=== PATIENT | female | born 1960 | race Caucasian/White ===

== ENCOUNTER 2025-01-17 14:59 | Observation (INO) | payer OTHER, SELFPAY ==
[2025-01-17 12:31] VITALS: BP 134/84
--- NOTE | 2025-01-17 13:49 | ED.GENMED ---
History of Present Illness
<Rosalba Cedillo, HIGH SCHOOL SOCIAL STUDIES TEACHER - Last Filed: 01/17/25 15:25>
General
Chief Complaint: Overdose Unintentional
Source: patient
Exam Limitations: none
Time Seen by Provider: 01/17/25 13:04
Nursing documentation reviewed up to this point in time: agreed with
History of Present Illness
History of Present Illness:
64-year-old female with history of anxiety/depression on Wellbutrin for 50 mg daily states she took her morning meds at 10 this morning and then as she was rushing out the door at 11:30 she saw her pill box sitting there and she accidentally took
her Saturday(tomorrow) medications. She is asymptomatic, no palpitations.
Past History
<Rosalba Cedillo, HIGH SCHOOL SOCIAL STUDIES TEACHER - Last Filed: 01/17/25 15:25>
Past History
ED Past Medical History: Cancer (Breast), Hypothyroidism and Psychiatric (anxiety/depression)
ED Past Surgical History: Orthopedic
Social History
Tobacco: Non-smoker
Personal:
Living: with family
Review of Systems
<Rosalba Cedillo, HIGH SCHOOL SOCIAL STUDIES TEACHER - Last Filed: 01/17/25 15:25>
Review of Systems
Allergies reviewed?: Yes
All Other Systems: ROS reviewed and negative except as documented in HPI and ROS
Constitutional: Denies fatigue
Respiratory: Denies trouble breathing
Cardiac: Denies chest pain or palpitations
ABD/GI: Denies abdominal pain or nausea
Skin: Reports no symptoms
Neurological: Reports no symptoms
Phy Exam
<Rosalba Cedillo, HIGH SCHOOL SOCIAL STUDIES TEACHER - Last Filed: 01/17/25 15:25>
Physical Exam
Physical Exam:
GENERAL: No acute distress. A&Ox3.
CONSTITUTIONAL: Afebrile.
EYES: clear, conjunctivae normal
ENMT: moist mucus membranes, Pharynx nl
RESPIRATORY: Regular respirations, nonlabored, lungs clear.
CARDIOVASCULAR: Regular rate and rhythm, no murmurs, no rubs.
GI: Soft, nontender, normal BS
MUSCULOSKELETAL: Moves with ease. Well perfused.
SKIN: Warm, dry, pink
PSYCH: Normal mood and affect. Well kept, interactive and appropriate
NEUROLOGIC: Awake, alert and oriented. No focal neurological deficits
Course
<Rosalba Cedillo, HIGH SCHOOL SOCIAL STUDIES TEACHER - Last Filed: 01/17/25 15:25>
Orders/Labs/Results
Orders:
Orders
01/17/25 13:07
Electrocardiogram (*1) Urgent
Reason for Study: QTc Monitoring
EKG- Treatment ONCE
01/17/25 14:48
Admit/Transfer Patient As Directed
Co-Sign Provider:
Level of Care: Observation services
Assign to:: Telemetry
Physician / Group: Hospitalist
Diagnosis: Accidental overdose
Reason for Telemetry: Other
Other Reason for Telemetry: Medication overdose
Date to Stop Telemetry: 01/19/25
Time to Stop Telemetry: 11:00
Reason for Hospitalization: Accidental overdose
01/17/25 14:50
Complete Blood Count/With Diff Urgent
Comprehensive Metabolic Panel Urgent
01/19/25 11:00
DC Protocol for Telemetry ONCE
Abnormal Lab Results
01/17/25
14:50
Absolute Monos (auto) 0.7 H 10^3/uL
(0.1-0.6)
BUN 20 H mg/dl
(7-17)
01/17/25 14:50
01/17/25 14:50
Vital Signs
Initial and Last Documented VS:
Initial Vital Signs
Temp Pulse Resp BP Pulse Ox
98.8 F 77 17 134/84 99
01/17/25 12:31 01/17/25 12:31 01/17/25 12:31 01/17/25 12:31 01/17/25 12:31
Last Documented Vital Signs
Temp Pulse Resp BP Pulse Ox
98.8 F 72 20 121/74 97
01/17/25 12:31 01/17/25 14:53 01/17/25 14:30 01/17/25 14:00 01/17/25 14:30
Butadiene Converter Utility Operator consulted with Physician
Butadiene Converter Utility Operator consulted with physician?: Yes
Name of Physician Consulted: Ky
<Chet Mcpherson, DO - Last Filed: 01/17/25 14:38>
Orders/Labs/Results
Orders:
Orders
01/17/25 13:07
Electrocardiogram (*1) Urgent
Reason for Study: QTc Monitoring
EKG- Treatment ONCE
01/17/25 14:48
Admit/Transfer Patient As Directed
Co-Sign Provider:
Level of Care: Observation services
Assign to:: Telemetry
Physician / Group: Hospitalist
Diagnosis: Accidental overdose
Reason for Telemetry: Other
Other Reason for Telemetry: Medication overdose
Date to Stop Telemetry: 01/19/25
Time to Stop Telemetry: 11:00
Reason for Hospitalization: Accidental overdose
01/17/25 14:50
Complete Blood Count/With Diff Urgent
Comprehensive Metabolic Panel Urgent
01/19/25 11:00
DC Protocol for Telemetry ONCE
Abnormal Lab Results
01/17/25
14:50
Absolute Monos (auto) 0.7 H 10^3/uL
(0.1-0.6)
BUN 20 H mg/dl
(7-17)
01/17/25 14:50
01/17/25 14:50
Vital Signs
Initial and Last Documented VS:
Initial Vital Signs
Temp Pulse Resp BP Pulse Ox
98.8 F 77 17 134/84 99
01/17/25 12:31 01/17/25 12:31 01/17/25 12:31 01/17/25 12:31 01/17/25 12:31
Last Documented Vital Signs
Temp Pulse Resp BP Pulse Ox
98.8 F 72 20 121/74 97
01/17/25 12:31 01/17/25 14:53 01/17/25 14:30 01/17/25 14:00 01/17/25 14:30
<Rosalba V. Day, HIGH SCHOOL SOCIAL STUDIES TEACHER - Last Filed: 01/17/25 15:25>
MDM/Problems Addressed
Differential Diagnosis Includes:
long Q-T, seizure risk
MDM/Problems Addressed:
64-year-old female with history of anxiety/depression on Wellbutrin for 50 mg daily states she took her morning meds at 10 this morning and then as she was rushing out the door at 11:30 she saw her pill box sitting there and she accidentally took
her Saturday(tomorrow) medications. She is asymptomatic, no palpitations.
EKG: NSR normal QT
2:40 p.m.
Consulted pharmacy, the half-life of Wellbutrin XL is 21 hours
Contacted [facility] toxicology, spoke with Dr. Mendiola. Recommends admit to telemetry for observation as pt is on highest dose, seizure known to occur at the 18th to 20th hour. Benzos for any seizure activity, repeat EKG if any changes
Hospitalist notified of admission.
Discussed with Dr. Mcpherson
CBC, CMP normal
<Rosalba V. Day, HIGH SCHOOL SOCIAL STUDIES TEACHER - Last Filed: 01/17/25 15:25>
*Pulse Oximetry
SaO2: 98
Oxygen Mode of Delivery: Room air
Patient hypoxic: no
*Critical Care Note
Total Time (30-74mins, 75-104mins- exclusive of procedures): Not Applicable
ED Attending Note
<Rosalba V. Day, HIGH SCHOOL SOCIAL STUDIES TEACHER - Last Filed: 01/17/25 15:25>
-
Portions of this chart may have been created with voice recognition software.� Occasional wrong word or��sound alike� substitutions may have occurred due to the inherent limitations of voice recognition software.
<Chet Mcpherson DO - Last Filed: 01/17/25 14:38>
ED Attending Note
Patient seen and examined by attending physician: Yes
I performed the substantive portion of visit, reviewed & personally made and approve the management plan that is documented in note by myself or EMILY.: Yes
Discharge Plan
Departure
Patient Disposition: Admit
Date of Disposition: 01/17/25
Time of Disposition: 13:49
Admit to: Telemetry
Presentation/result/management discussed w/ accepting MD/DO: Hospitalist
Patient with high blood pressure during this ER visit?: No
Condition: Good
Discharge Problem:
took one extra dose of medication, Accidental overdose
Interventions
Interventions:
*Risk Screen - Suicide Last Done: 01/17/25 12:25
*General Assessment Last Done: 01/17/25 12:33
*Neglect/Abuse Screening Last Done: 01/17/25 12:26
*ED COVID-19 Vaccine History Last Done: 01/17/25 12:33
*ED Influenza Vaccine History Last Done: 01/17/25 12:33
[facility] Risk Assessment Tool Last Done: 01/17/25 13:00
ED- Cardiac Assessment Last Done: 01/17/25 13:14
ED- Neurological Assessment Last Done: 01/17/25 13:14
ED-Psychological Assessment Last Done: 01/17/25 13:14
ED- Pulmonary Assessment Last Done: 01/17/25 13:14
[2025-01-17 14:00] VITALS: BP 121/74
[2025-01-17 14:58] LABS: Hematocrit 40.8 % (37.0-47.0); Hemoglobin 13.6 g/dL (12.0-16.0); Mean Corp Hgb Conc. 33.3 g/dL (33.0-37.0); Mean Corpuscular Volume 90.3 fL (81.0-99.0); Nucleated Red Blood Cells % 0 %; Platelet Count 188 10^3/uL (130-400); Red Cell Dist. Width 12.6 % (11.5-14.5)
[2025-01-17 15:00] VITALS: BP 144/87
--- NOTE | 2025-01-17 15:03 | HPS.HSE ---
Addendum entered and electronically signed by Vidal Lucas MD 01/17/25 15:40:
I personally reviewed and evaluated this patient with the resident. I agree with above unless if otherwise stated below.
I personally reviewed labs and imaging statistical consultant notes case management note
Unintentional overdose on Wellbutrin Forner 50 mg XL and levothyroxine 100 mcg along with letrozole.
- Accidentally took doses hour and a half apart from Medi senior planner.
Admit watch on telemetry as this could cause a pseudo thyroid storm. Therefore check TFT, if low normal then certainaly can cause some hyperthyroid symtpoms, if high normal then should be okay.
Seizure precautions
Avoid agents that lowers seizure threshold
If has seizure provide Ativan 2 mg
Original Note:
Family Physician
-
Family Physician: Aleah Ramirez
Chief Complaint
-
Accidental overdose
History of Present Illness
64-year-old female with history of anxiety, depression, breast cancer s/p mastectomy and radiation presents with accidental medication overdose. Patient notes that this morning she took her morning dose of Wellbutrin which was 450 mg,
levothyroxine, letrozole. At 11:30 PM she was rushing out the door to go out when she saw her pillbox sitting there and she accidentally took her Saturday medication ( wellbutrin, levothyroxine and letrozole). She took total of 900 mg for
wellbutrin, 200 mg of levothyroxine. She denies chest pain, shortness of breath, palpitations, dry mouth. She notes of being anxious now. EKG is normal.
Medical History
Past Medical History
Past Medical History: Reports Psychiatric (Anxiety/depression) and Other (Breast cancer, hypothyroidism)
Past Surgical History: Reports Other (Mastectomy)
Social History
Tobacco: Non-smoker
Alcohol: Occasional
Drug: None
Personal:
Living: With Family
Employment: Retired
Family History
Family History: Not pertinent
Allergies / Home Medications
Allergies reflects when Allergies were last updated in [facility].
Home Medications with original date entered in [facility]
Allergy/Medication List:
Allergies
Allergy/AdvReac Type Severity Reaction Status Date / Time
prochlorperazine (From Allergy Anaphylaxis Verified 01/17/25 12:32
Compazine)
Sulfa (Sulfonamide Allergy Rash Verified 01/17/25 12:32
Antibiotics)
Home Medications
bupropion HCl 150 mg 24 hr tablet, extended release (Wellbutrin XL) 150 mg PO DAILY Mental Health/Anxiety 01/17/25
bupropion HCl 300 mg 24 hr tablet, extended release (Wellbutrin XL) 300 mg PO DAILY Mental Health/Anxiety 01/17/25
cholecalciferol (vitamin D3) 25 mcg (1,000 unit) tablet (Vitamin D3) 25 mcg PO DAILY 01/17/25
letrozole 2.5 mg tablet 2.5 mg PO DAILY 01/17/25
levothyroxine 100 mcg tablet (Synthroid) 100 mcg PO DAILY Thyroid 01/17/25
lutein 20 mg tablet 20 mg PO DAILY Supplement 01/17/25
meloxicam 7.5 mg tablet 7.5 mg PO DAILYPRN PRN mild pain 01/17/25
sertraline 25 mg tablet 25 mg PO HS Mental Health/Anxiety 01/17/25
Review of Systems
-
History Source: Patient
A 12 point ROS was completed and negative except as noted: Yes
Physical Exam
Vital Signs
Vital Signs
Temp Pulse Resp BP Pulse Ox
98.8 F 72 20 121/74 97
01/17/25 12:31 01/17/25 14:53 01/17/25 14:30 01/17/25 14:00 01/17/25 14:30
Physical Exam
General: Comfortable and Conversant
HEENT: NormoCephalic, Anicteric and Moist mucous membranes
Respiratory: Clear and Wheezes
Cardiac: S1/S2 and Regular Rhythm
GI: Soft, Non Tender, Non Distended and Normal Bowel Sounds
Musculoskeletal: No Edema
Skin: Warm and Dry
Neuro: AO x 3
Hematologic/Lymphatic: No Lymphadenopathy
Psych: Calm
Laboratory Results
-
01/17/25 14:50
Data Reviewed
-
Lab Data: Labs Reviewed by me and Discussed with Physician
Impression/Plan
-
IMPRESSION:
Accidental medication overdose
History of anxiety/depression
History of hypothyroidism
History of breast cancer
History of Vitamin D deficiency
PLAN:
Accidental medication(wellbutrin) overdose
Total dose of Wellbutrin taken this morning 900 mg
Home dose dose 450mg.
Patient is hemodynamically stable
Labs are ok, normal EKG.
Toxicology specialist, Dr Mendiola, at [facility] was contacted by the ER physicians and recommended observing the patient overnight because of seizure risk at 18th-20th hour.
Admit to telemetry for observation
Repeat EKG if any changes
IV Ativan for any seizure activity
Hold all antipsychotic medication
History of anxiety/depression
Hold Wellbutrin.
Continue sertraline at night.
History of hypothyroidism
Took an extra dose of levothyroxine
Hold levothyroxine.
Monitor heart rate
History of breast cancer
s/p mastectomy and radiation
Hold letrozole
Hold meloxicam
History of vitamin D deficiency
Continue vitamin D3
Full code
Regular diet
Lovenox
[2025-01-17 15:22] LABS: ALT (SGPT) 29 U/L (0-35); AST (SGOT) 27 U/L (14-36); Albumin 4.1 g/dl (3.5-5.0); Alkaline Phosphatase 78 U/L (38-126); Blood Urea Nitrogen 20 mg/dl (7-17); Calcium 9.1 mg/dl (8.4-10.2); Carbon Dioxide 27 mmol/L (22-30); Chloride 105 mmol/L (98-107); Glucose 81 mg/dl (70-99); Potassium 4.2 mmol/L (3.5-5.1); Sodium 137 mmol/L (135-145); Total Protein 6.5 g/dl (6.3-8.2); eGFR > 60.00
[2025-01-17 15:54] VITALS: BP 140/82; BMI 26.2
--- NOTE | 2025-01-17 16:49 | PTCARENOTE ---
Pt was received from ED at 1555. Pt ambulated to the room, steady gait. Pt is AAOx3, VSS. No seizure activity noted. Pt feels well. SR on telemetry. Seizure precautions in place.
[2025-01-17 19:02] VITALS: BP 119/70
[2025-01-17 23:46] VITALS: BP 120/69
[2025-01-18 03:22] VITALS: BP 101/58
[2025-01-18 06:00] VITALS: BMI 25.5
[2025-01-18 08:13] VITALS: BP 101/59
[2025-01-18 08:34] LABS: Hematocrit 38.2 % (37.0-47.0); Hemoglobin 12.6 g/dL (12.0-16.0); Mean Corp Hgb Conc. 33.0 g/dL (33.0-37.0); Mean Corpuscular Volume 90.3 fL (81.0-99.0); Nucleated Red Blood Cells % 0 %; Platelet Count 161 10^3/uL (130-400); Red Cell Dist. Width 12.7 % (11.5-14.5)
--- NOTE | 2025-01-18 09:09 | W.PN.HOSP.TC ---
Today's Communication/Plan
-
Check thyroid labs
Discharge if stable
Assessment / Plan
Assessment / Plan
Gen-AAOx3, NAD
HEENT-NC, AT, anicteric, clear oral mm
Neck-supple
CV-reg, no M, +S1/S2
Lungs-clear B/L
Abd-soft, NT, ND
Ext-no edema
Musculoskeletal-no cyanosis, clubbing
Skin-warm and dry
Neuro-grossly non-focal
Psych-calm, cooperative
Accidental medication overdose -took 1 extra dose of her usual meds. So far no complications. Monitor on telemetry.
History of anxiety/depression -resume Wellbutrin on discharge.
Hypothyroidism -thyroid labs pending. Resume levothyroxine at discharge.
History of breast cancer -continue letrozole.
Vitamin D deficiency
Full code
Dispo -anticipate discharge home after lunch today if she remains stable. Outpatient follow-up.
Anticipated Discharge: Today
Subjective/Interval History
-
Date of Service: January 18, 2025
Patient seen and examined. No complaints.
Objective Data
-
Labs:
Laboratory Results
01/18/25
07:38
WBC 5.2
Hgb 12.6
Hct 38.2
Plt Count 161
Sodium Pending
Potassium Pending
Chloride Pending
Carbon Dioxide Pending
BUN Pending
Creatinine Pending
Glucose Pending
Calcium Pending
Total Bilirubin Pending
AST Pending
ALT Pending
Alkaline Phosphatase Pending
Vital Signs:
Vital Signs
Temp Pulse Resp BP Pulse Ox
98.1 F 75 18 101/59 98
01/18/25 08:13 01/18/25 08:13 01/18/25 08:13 01/18/25 08:13 01/18/25 08:13
Review of Systems
-
History Source: Patient
All other systems: Reviewed and negative
--- NOTE | 2025-01-18 09:13 | W.DS.TRANS ---
DC Summary - Change Attendant
-
Discharge Instructions:
Discharge Diagnosis/Procedures Accidental medication overdose
Diet Regular
Activity As tolerated
Driving Restrictions As prior to admission
Bathing Restrictions None
Instructions:
Stand-Alone Forms:
Changes to Home Medications: No
Discharge Medications:
DC Medications w/original date entered in [facility]
bupropion HCl 150 mg 24 hr tablet, extended release (Wellbutrin XL) 150 mg PO DAILY Mental Health/Anxiety 01/17/25
bupropion HCl 300 mg 24 hr tablet, extended release (Wellbutrin XL) 300 mg PO DAILY Mental Health/Anxiety 01/17/25
cholecalciferol (vitamin D3) 25 mcg (1,000 unit) tablet (Vitamin D3) 25 mcg PO DAILY 01/17/25
letrozole 2.5 mg tablet 2.5 mg PO DAILY 01/17/25
levothyroxine 100 mcg tablet (Synthroid) 100 mcg PO DAILY Thyroid 01/17/25
lutein 20 mg tablet 20 mg PO DAILY Supplement 01/17/25
meloxicam 7.5 mg tablet 7.5 mg PO DAILYPRN PRN mild pain 01/17/25
sertraline 25 mg tablet 25 mg PO HS Mental Health/Anxiety 01/17/25
Home Medication Changes
Pending Results: No
[2025-01-18 09:18] LABS: ALT (SGPT) 24 U/L (0-35); AST (SGOT) 24 U/L (14-36); Albumin 3.7 g/dl (3.5-5.0); Alkaline Phosphatase 67 U/L (38-126); Blood Urea Nitrogen 16 mg/dl (7-17); Calcium 9.0 mg/dl (8.4-10.2); Carbon Dioxide 26 mmol/L (22-30); Chloride 108 mmol/L (98-107); Estimated Creatinine Clearance 69 ml/min; Glucose 83 mg/dl (70-99); Potassium 4.1 mmol/L (3.5-5.1); Sodium 138 mmol/L (135-145); Total Protein 6.2 g/dl (6.3-8.2); eGFR > 60.00
--- NOTE | 2025-01-18 10:11 | CM ---
Ia completed OBS form given and placed on chart. IND in ADLs and IADLs. Lives in a 2 story house with her spouse with 3 steps at the entrance to the home. Full BR is no the second floor; 13 steps inside the home. No hx of HH, SNF, DME or home O2.
Confirmed PCP. RX drug coverage and insurance. No insecurities identified.
PCP: Aleah Ramirez
Rx: [facility]
Plan: DC to home no needs
[2025-01-18 10:20] VITALS: BP 119/74
[2025-01-18 11:30] LABS: TSH 0.63 uIU/ml (0.47-4.68)
== END 2025-01-18 12:12 | disposition home or self-care (01) ==
LOC: 4 EAST ACU 14:59
PROVIDERS: Registered Nurse; Student in an Organized Health Care Education/Training Program; ADMITTING PHYSICIAN Hospitalist; ATTENDING PHYSICIAN Hospitalist; EMERGENCY PHYSICIAN Emergency Medicine; FAMILY PHYSICIAN Internal Medicine
DX: T43.291A Poisoning by other antidepressants, accidental (unintentional), initial encounter (principal); E03.9 Hypothyroidism, unspecified; F41.9 Anxiety disorder, unspecified; F32.A Depression, unspecified; Z88.8 Allergy status to other drugs, medicaments and biological substances; Z88.2 Allergy status to sulfonamides; Z79.811 Long term (current) use of aromatase inhibitors; Z79.899 Other long term (current) drug therapy; E55.9 Vitamin D deficiency, unspecified; Z85.3 Personal history of malignant neoplasm of breast; Z90.10 Acquired absence of unspecified breast and nipple; Z92.3 Personal history of irradiation
CPT/HCPCS: 80053; 84439; 84443; 85025; 87070; 93005; 99285; G0378